=== PATIENT | female | born 1995 | race Caucasian/White ===

== ENCOUNTER → 2018-03-28 | Day surgery (SDC) | payer BC ==
[~2018-03-28] MED LIST: FENTAnyl 50 MCG/ML VIAL; PROPOFOL 20 ML
== END | disposition home or self-care (01) ==
LOC: GIL 06:54
DX: K21.0 Gastro-esophageal reflux disease with esophagitis (principal); K29.00 Acute gastritis without bleeding
CPT/HCPCS: 43239; 84703; 88305; 88312; 88313